=== PATIENT | female | born 1990 | race Caucasian/White ===

== ENCOUNTER → 2020-11-19 | Outpatient (CLI) | payer OTHER ==
--- NOTE | 2020-11-19 11:16 | REP ---
INDICATION: PREG 28W3D, GROWTH. COMPARISON: None TECHNIQUE: Real-time sonographic evaluation of the gravid uterus performed. FINDINGS: Estimated gestational age is29 weeks 3 days, EDC 02/01/2021. Today's measurements indicate appropriate growth. Presentation: Cephalic Placenta posterior, grade 1, without evidence of placenta previa. heart rate is recorded at 141 beats per minute. Amniotic fluid is subjectively normal. Closed cervical length is measured at 6.0 cm. Biometry chart: BPD: 74 mm, 29 weeks 5 days, 56th percentile. HC: 274 mm, 29 weeks 6 days, 61st percentile AC: 239 mm, 28 weeks 1 days, 25th percentile Femur length: 55 mm, 29 weeks 0 days, 42nd percentile HC to AC ratio: 1.15, normal range 0.98-1.17. Estimated weight: 1276g, 18th percentile. SD ratio umbilical artery 2.35, normal 2.00-4.17. RI 0.57, normal 0.53-0.77. anatomy: Cranium: Grossly normal Lateral Ventricles/Choroid Plexus: Grossly normal Posterior Fossa/Cerebellum: Grossly normal Nose/lips/profile: Grossly normal Four chamber heart: Grossly normal Right ventricular outflow tract: Grossly normal Left ventricular outflow tract: Grossly normal Left-sided stomach: Grossly normal Kidneys: Grossly normal Bladder: Grossly normal Cord Insertion: Grossly normal 3 vessel cord: Grossly normal Spine: Grossly normal IMPRESSION: Viable single intrauterine gestation as above. <Electronically signed by Ace Ardon > 11/19/20 [id number]
== END ==
LOC: M RAD 09:12
PROVIDERS: ATTEND Obstetrics & Gynecology
DX: Z36.3 Encounter for antenatal screening for malformations (principal); Z3A.29 29 weeks gestation of pregnancy

== ENCOUNTER 2021-01-27 11:51 | Inpatient (IN) | payer OTHER ==
[2021-01-27] VITALS (26 sets, daily range): BP systolic 113–137; BP diastolic 55–89
[~2021-01-27] VITALS: Ht 157.5 cm; Wt 68.0 kg
[2021-01-27] MEDS ORDERED: LR 1,000 ML IV SCH ×2 (12:40→17:30)
[2021-01-27] MEDS ORDERED: OXYTOCIN DRIP 30 UNITS in IV 1 EA IV PRN (12:40)
[2021-01-27] MEDS ORDERED: LACTATED RINGER'S 1000 ML IV STA (12:40)
[2021-01-27] MEDS ORDERED: LIDOCAINE 1% MDV 20ML VIAL INFIL PRN (12:40)
[2021-01-27 12:51] LABS: HEMATOCRIT 35.7 % (36.0-47.0); HEMOGLOBIN 11.9 g/dl (12.0-15.5); MEAN CORPUSCULAR HEMOGLOBIN 30.2 pg (27.0-33.0); MEAN CORPUSCULAR HGB CONC 33.3 g/dl (32.0-36.5); MEAN CORPUSCULAR VOLUME 90.6 fl (80.0-96.0); PLATELET COUNT, AUTOMATED 179 10^3/uL (150-450); RED BLOOD COUNT 3.94 10^6/uL (4.00-5.40); WHITE BLOOD COUNT 9.1 10^3/uL (4.0-10.0)
[2021-01-27] MEDS ORDERED: PRENTAB9 PO (13:02)
--- NOTE | 2021-01-27 13:13 | HPEPDOC ---
Obstetrical History & Physical General Date of Admission January 27, 2021 at 12:17 History of Present Illness 30 yo at 38+5 weeks gestation by LMP of [id number] c/w 9+2 week US presen vladimir to L&D with the complaint of a large gush of clear fluid at ~0900 followed by continuous clear leaking ever since. She denies any bleeding. She endorses intermittent contractions but nothing severe. Her first delivery was a section for what appears to be NRFHT and an arrest disorder in 2018 and she strongly desires a TOLAC for this . Chief Complaint: LOF, term Information Provided By: Patient Age: 30 : 2 Term: 1 Pre-term: 0 Abortions: 0 Livin Care Care: Good Care Dating Final EDC: February 05, 2021 Final EDC for Daily Update: February 05, 2021 Final EDC by: LMP (LMP of [id number] c/w 9+2 week US set SALLY of [id number]) Antepartum Course Diagnos(e)s CHTN? 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 BREAST: . ABDOMEN: Gravid and non-tender to touch. FETUS: Is vertex (VTX) by sterile vaginal examination (SVE) EXTREMITIES: No edema. PELVIC: Normal external genitalia. Speculum inserted into the vagina. Pooling of clear fluid noted. Swabs obtained. Speculum removed. + nitrazine, +ferning on microscopy. Bedside TAUS: Cephalic presenting infant. Laboratory Data 24H LABS Laboratory Tests 2 01/27/21 12:25: 01/27/21 12:26: Serology Scanned Report Hepatitis B Testing CBC/BMP Urine Culture: No Growth Pertinent Laboratoy Data Blood Type: O+ RBC Antibody Screen: Negative HIV: Negative Hepatitis B: Negative Hepatitis C: Unknown Rapid Plasma Reagin: Nonreactive Rubella: Immune Varicella: Immune Chlamydia/Gonorrhea: Negative Group B Streptococcus: Negative Quad Screen Test: Declined Cystic Fibrosis: Negative Glucose Tolerance Test: 97 Anatomy Ultrasound Placenta Location: Posterior Normal Anatomy: Yes Placenta Previa: No Steroid Therapy Steroid Therapy: No Vaginal Examination Dilation: 1cm Effacement: 50% Station: -3 Cervical Consistency: Medium Cervical Position: Middle Presentation: Cephalic presentation Position: Vertex (occiput) Assessment Heart Rate (FHR): 140 Variability: Moderate Accelerations: Positive Decelerations: None Tocometer Contractions: Yes Frequency: irregular Assessment/Plan Assessment 30 yo at 38+5 weeks gestation presented to L&D with rupture of membranes. Patient strongly desires TOLAC. Plan Admit to L&D for expectant management of labor. Will augment labor as clinically indicated. Apply IV fluids. Labs per L&D protocol. Patient strongly desires TOLAC. Will maintain monitoring per L&D protocol. GBS negative. Patient candidate for epidural as desired. Anticipate . Labor and Delivery Counseling consent I understand that I have had one or more prior section(s) with an incision in the non-glendy part of my uterus. 2) I understand that I have the option of undergoing an elective repeat or attempting a vaginal after section(s) (). 3) I understand that approximately 60- 80 percent of women who undergo a will successfully deliver vaginally. 4) I understand that the risk of uterine rupture during in someone such as myself who has had a prior incision in the non-glendy part of my uterus is around 1 percent. 5) I understand that whenever a woman is in labor, emergency complications can occur so quickly that the medical providers in attendance may not have sufficient time to intervene to prevent or injury to my baby and/or me. These emergency complications can occur not only in trials, but also in normal vaginal deliveries. 6) I understand that the decision to have a is entirely my own and the option of an elective repeat section has been discussed with me. 7) I understand that carries a lower risk to me than does delivery. 8) I understand that if I have a vaginal delivery, I will most likely have fewer problems after delivery and a shorter hospital stay than if I have a delivery. 9) I understand that in a majority of cases, where an urgent section is needed, there will be no ill effects to me or my , but occasionally urgent surgery may increase blood low requiring transfusions and in rare cases the removal of my uterus. 10) I understand that if I choose a and end up having a section during labor, I have a greater risk of problems than if I had originally chosen an elective repeat section. The risk of attempting vaginal delivery after a previous delivery is that the scar on the uterus may separate during labor. This is known as uterine rupture and occurs in approximately 1 in 100 women with a previous low transverse incision on the womb. Where the previous incision on the womb has been labeled unknown because medical records could not be obtained for review, then the risk of uterine rupture depends on the previous indication for the . The risk is typically between that of women with a known low t ransverse scar and that of women who have had two previous deliveries (2-3 per 100 women). Because of this risk, active labor will be observed in the hospital and special monitoring may be used during labor to help evaluate contractions and the 's well-being. If uterine rupture occurs, an emergency delivery will be necessary. Uterine rupture can have negative effects for the infant or the mother. A blood transfusion due to excessive blood loss, in rare cases, the removal of the uterus (hysterectomy) may be necessary. One or two in 1000 women under-going a trial of labor after a previous delivery may deliver an with problems related to a slow heart rate just before delivery as a result of uterine rupture. Ms. Tijerina appears to understand all these risks and elects to proceed with TOLAC today. She also consents to a blood transfusion if necessary. All questions answered. DO LAMAR Manrique CHRISTOPHER J. DO January 27, 2021 13:13
[2021-01-27] MEDS ORDERED: FENTANYL 2MCG/ML ROPIVACAINE 0.2% IN 0.9% NACL 100ML IVBAG As Ordered ONE (15:37)
[2021-01-27] MEDS ORDERED: ePHEDrine SULFATE 25 MG/5 ML(5MG/ML) SYRINGE IV PRN (16:30)
[2021-01-27] MEDS ORDERED: NALOXONE INJ 0.4MG/1ML VIAL (J2310 PER 1MG) IV PRN (16:30)
[2021-01-27] MEDS ORDERED: REFRIGERATOR IV KEYS XX PRN (16:30)
[2021-01-27] MEDS ORDERED: diphenhydrAMINE 50MG/ML VIAL (J1200) IV PRN (16:30)
[2021-01-27] MEDS ORDERED: EPIDURAL COMMENT XX SCH (16:30)
[2021-01-27] MEDS ORDERED: LACTATED RINGER'S 1000 ML IV PRN (16:30)
[2021-01-27] MEDS ORDERED: FENTANYL/ROPIVACAINE/NACL BAG 100 ML EPIDURAL SCH (16:30)
[2021-01-27] MEDS ORDERED: ONDANSETRON 4MG/2ML VIAL IV PRN (16:30)
[2021-01-27] MEDS ORDERED: EPIDURAL/PCA KEYS XX PRN (16:30)
[2021-01-27] MEDS ORDERED: OXYTOCIN DRIP 30 UNITS in IV 1 EA IV SCH (17:30)
--- NOTE | 2021-01-27 17:39 | IPNPDOC ---
Text Note Date of Service The patient was seen on 01/27/21. NOTE Presented to room for assessment of progress. Angélica is comfortable with her epidural in place. Cervix: 2/75/-2. Clear fluid. FHR Cat I. Contractions irregular. I discussed my recommendation of pitocin for augmentation of labor. We discussed all risks and benefits. Angélica agrees to proceed. Will start at 4mU and titrate to effect. All questions answered. Jose VS,Shan, I+O VS, Shan, I+O Laboratory Tests 01/27/21 12:25 Vital Signs Date Time Temp Pulse Resp B/P (MAP) Pulse Ox O2 Delivery O2 Flow Rate FiO2 01/27/21 16:41 80 129/79 (96) 01/27/21 12:46 18 01/27/21 12:24 98.1 KERRI NEWTON DO January 27, 2021 17:39
[2021-01-27] MEDS ORDERED: CALCIUM CARBONATE 500 MG CHEW U/D PO PRN (18:55)
--- NOTE | 2021-01-27 20:14 | IPNPDOC ---
Text Note Date of Service The patient was seen on 01/27/21. NOTE Patient feeling increased pressure with contractions. Cervix: 5/80/-1. FSE placed due to intermittent breaks in the tracing. FHR with sporadic variable decels, but with moderate variability and +accels. Overall reassuring. Pitocin at 8mU. Continue to titrate to effect. Will not increased above 10mU. All patient questions answered. Jose VSShan, I+Tony VSShan I+O Laboratory Tests 01/27/21 12:25 Vital Signs Date Time Temp Pulse Resp B/P (MAP) Pulse Ox O2 Delivery O2 Flow Rate FiO2 01/27/21 17:41 62 122/74 (90) 01/27/21 12:46 18 01/27/21 12:24 98.1 KERRI NEWTON DO January 27, 2021 20:14
--- NOTE | 2021-01-27 22:25 | IPNPDOC ---
Text Note Date of Service The patient was seen on 01/27/21. NOTE Patient having early and variable decels. Cat II tracing, but moderate varia bility and +accels. Cervix: C/C/0. Accels after exam. Angélica is progressing very well. Continue with pitocin. Will begin pushing efforts soon. Safe to proceed. Jose VS,Shan, I+O VS, Grege, I+O Laboratory Tests 01/27/21 12:25 Vital Signs Date Time Temp Pulse Resp B/P (MAP) Pulse Ox O2 Delivery O2 Flow Rate FiO2 01/27/21 20:45 58 18 113/68 (83) 01/27/21 12:24 98.1 KERRI NEWTON DO January 27, 2021 22:25
[2021-01-28] VITALS (8 sets, daily range): BP systolic 118–137; BP diastolic 56–83
[2021-01-28] MEDS ORDERED: RHOGAM 300 MCG (1500 IU) INJ (J2790) IM SCH (00:05)
[2021-01-28] MEDS ORDERED: DOCUSATE SODIUM 100MG CAPSULE PO PRN (00:05)
[2021-01-28] MEDS ORDERED: ACETAMINOPHEN 500 MG TAB PO PRN (00:05)
[2021-01-28] MEDS ORDERED: IBUPROFEN 600MG TAB PO PRN (00:05)
[2021-01-28] MEDS ORDERED: PROMETHAZINE 25 MG TAB PO PRN (00:05)
[2021-01-28] MEDS ORDERED: DIBUCAINE 1% OINTMENT 30GM TOP PRN (00:05)
[2021-01-28] MEDS ORDERED: MEASLES,MUMPS,RUBELLA VACCINE INJ (MMR-II) (90707) SC SCH (00:05)
[2021-01-28 00:24] LABS: CORD GAS ABE V -7.1; CORD GAS HCO3 V 20.1 MEQ/L; CORD GAS O2 SAT V 62.5 %; CORD GAS PCO2 V 46.2 mmHg; CORD GAS PH V 7.256 UNITS; CORD GAS TCO2 V 21.5 MEQ/L
--- NOTE | 2021-01-28 00:24 | DNPDOC ---
[facility] Delivery Note Delivery Note DATE OF DELIVERY: 27Jan2021 at ~2340 PREDELIVERY DIAGNOSIS: 38+5 weeks gestation and labor with desire for TOLAC POST DELIVERY DIAGNOSIS: Delivered. PROCEDURE: Vacuum assisted vaginal after section RULING MACHINE SET UP OPERATOR: Dr. Garcia ANESTHESIA: Neuraxial (epidural) ESTIMATED BLOOD LOSS: 400 FINDINGS: 7 pound 0 ounce male , Score 8/9 DELIVERY SUMMARY: Angélica progressed to C/C/+1 and started pushing. She had variable decelerations and then a 9 minute deceleration down to the 60s. In the room her baby was at +3 station. There was some FHR recovery with scalp stim, however she continued to have decelerations down to the 60s. I counseled her and recommended a vacuum assisted delivery for distress. I discussed with her all risks of vacuum assisted deliveries to include, but not limited to, hematoma, lacerations, bleeding in the brain, and even . I also offered her a section instead. After counseling Angélica consented to a vacuum assisted delivery. The head was felt to be OA. The patient's jolley catheter was removed and thus her bladder was empty. A kiwi vacuum device was opened on the field and found to be functional. The vacuum was placed on the head at the flexion point. Care was taken to ensure no maternal tissue was caught within the device. During her next set of contractions the suction was activated up to the green zone per the pile driver engineer guidelines. With excellent effort her baby delivered with one pull of the vacuum. The head delivered in SAJNAY position with restitution to ROT. The vacuum was pressure was released and the vacuum was discarded off the field. The left anterior shoulder then delivered with gentle traction followed easily by the remainder of the body. The infant was dried and stimulated on the field and a bulb suction was used. The infant cried vigorously and was then placed on the maternal abdomen. The three vessel cord was then clamped and cut by the FOB under my direction and after appropriate time delay. Cord gases were then drawn. Third stage was completed with gentle traction on the cord and it was productive of an intact placenta. The uterine fundus was firmed with massage and pitocin was administered IV bolus. Inspection of the cervix, vagina, labia, and perineum revealed a midline vaginal floor laceration. This laceration was repaired with 3-0 vicryl suture in the usual fashion. There was excellent cosmesis and hemostasis after the repair. The uterine fundus was palpated again and was firm. Sponge, instrument, and needle counts were correct X2. Mother and infant stable when I left the room. Baby will spend time in the NICU as a precaution due to vacuum assisted delivery. DO LAMAR Manrique CHRISTOPHER J. DO January 28, 2021 00:24
[2021-01-28] MEDS: IBUPROFEN 800 MG TAB PO PRN ×2 (05:35→13:53)
--- NOTE | 2021-01-28 07:17 | IPNPDOC ---
Progress Note Date of Service: January 28, 2021 Progress Note Angélica is a 30 yo G2 now P2 who underwent an uncomplicated vacuum assisted vaginal after section late last night after being admitted for SROM and early labor. She is currently recovering on the unit. Infant rooming with mom after spending 4 hours in the NICU for observation per protocol after vacuum delivery. Ms. Tijerina reports feeling well this AM. She is ambulating, voiding, tolerating a regular diet, has minimal lochia, and minimal pain. Vitals - VSS, afebrile, normotensive, non tachycardic General - AAOX3, sitting up in bed, NAD, pleasant and conversant Abdomen - Fundus firm at U-2. No fundal tenderness Extremities - No edema Ms. Tijerina is doing well and is making an appropriate recovery. Likely discharge home tomorrow if meeting all criteria. Continue routine care. All questions answered. Jose VS, I&O, 24H, Emanuelbone Vital Signs/I&O Vital Signs Date Time Temp Pulse Resp B/P (MAP) Pulse Ox O2 Delivery O2 Flow Rate FiO2 01/28/21 06:00 99.1 64 18 124/58 (80) 98 Room Air I&O- Last 24 Hours up to 6 AM 01/28/21 06:00 Intake Total 4122 ml Output Total 1450 ml Balance 2672 ml Laboratory Data 24H LABS Laboratory Tests 2 01/27/21 12:25: Nucleated Red Blood Cells % (auto) 0.0 01/27/21 12:26: Serology Scanned Report Hepatitis B Testing 01/28/21 00:14: Cord Venous Blood pH 7.256, Cord Venous Blood PCO2 46.2, Cord Venous Blood PO2 27.0, Cord Venous Blood HCO3 20.1, Cord Venous Blood Total CO2 21.5, Cord Venous Base Excess (Actual) -7.1, Cord Venous Base Excess (Standard) 18.0, Cord Venous Blood Oxygen Saturation 62.5 CBC/BMP Laboratory Tests 01/27/21 12:25 KERRI NEWTON DO January 28, 2021 07:17
[2021-01-28] MEDS: PRENATAL VITAMINS CHEWABLE TABLET PO SCH (08:55)
[2021-01-28] MEDS: FERROUS SULFATE 325MG TAB PO SCH (08:55)
[2021-01-28] MEDS: ACETAMINOPHEN TAB 650MG DOSE (2X325MG) PO PRN (08:56)
[2021-01-29] MEDS: IBUPROFEN 800 MG TAB PO PRN (01:40)
[2021-01-29 06:00] VITALS: BP 119/61
--- NOTE | 2021-01-29 07:15 | IPNPDOC ---
Progress Note Date of Service: January 29, 2021 Day#: 2 Progress Note SUBJECT: Ms. Tijerina is a 30yo now PPD2 after a vacuum assisted vaginal [place] after prior delivery complicated by a midline vaginal laceration. 7 pound 0 ounce male infant, Score 8/9. She has been ambulating, voiding spontaneously without issue and tolerating regular diet. Breast feeding without issue. Reports lochia is like a normal period. Patient is ambulating well. Reports some cramping with . Denies any pain. Voiding and stooling without difficulty. OBJECTIVE: VITAL SIGNS: Within normal limits, afebrile. Alert and oriented times three. No increased WOB Heart rate: non-tachy Abdomen: Fundus firm at U-1. Soft, NTTP. [Minimal] lochia. ASSESSMENT: Ms. Tijerina is a 30yo now PPD2 after a vacuum assisted vaginal delivery after prior delivery complicated by a midline vaginal laceration. Vitals within normal limits, afebrile, hemodynamically stable with no evidence of infection. PLAN: 1. Discharge to home today. 2. Tylenol and Motrin for pain. 3. Encourage breast feeding and ambulation. 4. Desires minipill for contraception 5. Routine PP visit in 6 weeks in clinic. Patient to come for a blood pressure check in 72h 6. Discussed return precautions at length. Discussed signs and symptoms of pre- eclampsia. VS, I&O, 24H, Fishbone Vital Signs/I&O Vital Signs Date Time Temp Pulse Resp B/P (MAP) Pulse Ox O2 Delivery O2 Flow Rate FiO2 01/29/21 06:00 98.6 65 16 119/61 (80) 98 Room Air I&O- Last 24 Hours up to 6 AM 01/29/21 05:59 Intake Total 300 ml Balance 300 ml VALENCIA ESTRADA DO January 29, 2021 07:15
--- NOTE | 2021-01-29 07:17 | OBDS ---
[facility] Obstetrical Discharge Sum. A/P, Post Course List any complications Ms. Tijerina is a 30yo after a vacuum assisted vaginal delivery after prior delivery complicated by a midline vaginal laceration. 7 pound 0 ounce male infant, Score 8/9. She has been ambulating, voiding spontaneously without issue and tolerating regular diet. Breast feeding without issue. Reports lochia is like a normal period. Patient is ambulating well. Reports some cramping with . Denies any pain. Voiding and stooling without difficulty. Vitals within normal limits, afebrile, hemodynamically stable with no evidence of infection. Problems List 1. chronic hypertension, not on medications PLAN: 1. Discharge to home today. 2. Tylenol and Motrin for pain. 3. Encourage breast feeding and ambulation. 4. Desires minipill for contraception 5. Routine PP visit in 6 weeks in clinic. Patient to come for a blood pressure check in 72h 6. Discussed return precautions at length. Discussed signs and symptoms of pre- eclampsia. 7. Educated on activity limitations to include pelvic rest. VALENCIA ESTRADA DO January 29, 2021 07:17
[2021-01-29] MEDS: PRENATAL VITAMINS CHEWABLE TABLET PO SCH (07:55)
[2021-01-29] MEDS: FERROUS SULFATE 325MG TAB PO SCH (07:55)
[2021-01-29] MEDS: ACETAMINOPHEN TAB 650MG DOSE (2X325MG) PO PRN (07:56)
== END 2021-01-29 11:15 | disposition home or self-care (01) | DRG 807 ==
LOC: M LDO 11:51 → M LDI 12:17 → M OBS 01-28 02:35
PROVIDERS: ADMIT Obstetrics & Gynecology; ATTEND Obstetrics & Gynecology
PROC: 10D07Z6 Extraction of Products of Conception, Vacuum, Via Natural or Artificial Opening (ICD-10-PCS; principal; 2021-01-27)
PROC: 0KQM0ZZ Repair Perineum Muscle, Open Approach (ICD-10-PCS; 2021-01-27)
DX: O42.02 Full-term premature rupture of membranes, onset of labor within 24 hours of rupture (principal); Z37.0 Single live birth; Z3A.38 38 weeks gestation of pregnancy; O34.219 Maternal care for unspecified type scar from previous cesarean delivery; O76 Abnormality in fetal heart rate and rhythm complicating labor and delivery; O70.1 Second degree perineal laceration during delivery